=== PATIENT | female | born 2000 | race Caucasian/White ===

== ENCOUNTER → 2023-03-13 | Outpatient (CLI) | payer OTHER ==
[~2023-03-13] MED LIST: IBU800 M1 PO
--- NOTE | 2023-03-13 13:45 | NUR ---
Pt, Marii Rogers, presents to walk-in clinic with 4 day old baby girl, Cherelle Smalls, and significant other, Rodríguez Laypattimary. Pt states she has sore nipples, but feels baby is getting enough to eat. Cherelle was born on [birth year] and weighed 6# 5.9oz (2890 gms). Today Cherelle weighs 6# 4.6oz (2852 gms). She was seen earlier today by Dr. Almaraz and her weight was similar. Pt reports Cherelle has qs voids and stools for her age and stools are starting to turn yellow. Pt's milk is increasing and she has had to manage engorgement a little bit. Pt places baby to breast, because baby is pretty eager to eat she latches pretty easily, but LC has her re-latch and get the nipple in a little deeper using cross cradle to compress the areola. Pt states it feels a little better. Compressions strips are noted across each nipple from previous shallow latches. After Cherelle has a gain of 58 gms (2oz). Pt assisted with getting Cherelle scheduled for her outpatient echocardiogram, discharges from here to admissions for this proceedure. POC: Continue BF ad nena, working on deeper latch. F/U: As scheduled with physicians and walk-in clinic as needed. Questions invited and answered.
== END ==
LOC: LAC 12:56
DX: Z39.1 Encounter for care and examination of lactating mother (principal); Z71.89 Other specified counseling